=== PATIENT | female | born 1960 | race Caucasian/White ===

== ENCOUNTER 2017-01-07 16:56 | Emergency (ER) | payer OTHER ==
[2017-01-07] MEDS ORDERED: Acetaminophen/HYDROcodone 325-10 MG Tab PO ONE (17:11)
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
[2017-01-07] MEDS ORDERED: Take Home: Cyclobenzaprine 10 MG Tab, 4 Tab Pack PO ONE (18:48)
[2017-01-07] MEDS ORDERED: Take Home: Acetaminophen/HYDROcodone 325-10 MG, 5 Tab Pack PO ONE (18:48)
[2017-01-07 20:49] VITALS: BP 168/95
== END 2017-01-07 19:03 | disposition home or self-care (01) ==
LOC: VM.ED 16:56
DX: S43.402A Unspecified sprain of left shoulder joint, initial encounter (principal); V29.50XA Motorcycle passenger injured in collision with unspecified motor vehicles in traffic accident, initial encounter
CPT/HCPCS: 73030; 73060; 99283; A9270

== ENCOUNTER 2019-06-09 07:59 | Observation (INO) | payer BC, OTHER ==
[2019-06-09] MEDS ORDERED: Aspirin 81 MG Tab.Chew PO ONE (08:33)
[2019-06-09] MEDS ORDERED: Sodium Chloride 0.9% 10 ML Syringe FLUSH PRN (08:34)
[2019-06-09] MEDS: Nitroglycerin 0.4 MG Tab.SL SL PRN ×3 (08:47→13:33)
--- NOTE | 2019-06-09 08:57 | EDM.PDOC ---
ED HPI GENERAL MEDICAL PROBLEM - General Chief Complaint: Cardiovascular Problem Stated Complaint: HEART RACING Time Seen by Provider: 06/09/19 08:40 - History of Present Illness INITIAL COMMENTS - FREE TEXT/NARRATIVE: Pt presents with c/o chest pressure that started yesterday. Pt with hx of htn and arthritis, denies any cardiac issues in the past. No dizziness, did states had some "acid reflux" yesterday. - Related Data Allergies Allergy/AdvReac Type Severity Reaction Status Date / Time No Known Allergies Allergy Verified 06/09/19 08:15 Home Meds: Home Meds Ferrous Sulfate [Iron] 325 mg PO DAILY 01/07/17 [History] Lisinopril 10 mg PO DAILY 06/09/19 [History] Past Medical History Cardiovascular History: Reports: High Cholesterol, Hypertension Other Gastrointestinal History: reflux Musculoskeletal History: Reports: Osteoarthritis Social & Family History - Tobacco Use Smoking Status *Q: Former Smoker Used Tobacco, but Quit: Yes Month/Year Tobacco Last Used: ED ROS GENERAL - Review of Systems Review Of Systems: See Below Constitutional: Reports: No Symptoms HEENT: Reports: No Symptoms Respiratory: Reports: No Symptoms Cardiovascular: Reports: Chest Pain Endocrine: Reports: No Symptoms GI/Abdominal: Reports: No Symptoms : Reports: No Symptoms Musculoskeletal: Reports: No Symptoms Skin: Reports: No Symptoms Neurological: Reports: No Symptoms Psychiatric: Reports: No Symptoms Hematologic/Lymphatic: Reports: No Symptoms Immunologic: Reports: No Symptoms ED EXAM, GENERAL - Physical Exam Exam: See Below Free Text/Narrative:: Ekg noted pvc every 3-4 beats, on monitor noted some pac not noted on ekg seen on monitor pt with chest pressure was relieved by 1 sl ntg. low wbc at 3.2 noted opacity projects over the retrocardia clear space per x ray ct noted small hiatus hernia no suspicious parenchymal nodularity noted. Will place in obs, repeat trop and ekg at 1345. Exam Limited By: No Limitations General Appearance: Alert, WD/WN, No Apparent Distress Eye Exam: Bilateral Eye: PERRL Ears: Normal External Exam Nose: Normal Inspection, Normal Mucosa, No Blood Throat/Mouth: Normal Inspection, Normal Lips Head: Atraumatic, Normocephalic Neck: Normal Inspection, Supple, Non-Tender Respiratory/Chest: No Respiratory Distress, Lungs Clear, Normal Breath Sounds, No Accessory Muscle Use, Chest Non-Tender Cardiovascular: Normal Peripheral Pulses, Regular Rate, Rhythm, No Edema, No Gallop, No JVD, No Murmur, No Rub GI/Abdominal: Normal Bowel Sounds Back Exam: Normal Inspection, Full Range of Motion Extremities: Normal Inspection, Normal Range of Motion, Non-Tender, No Pedal Edema, Normal Capillary Refill Neurological: Alert, Oriented Psychiatric: Normal Affect, Normal Mood Skin Exam: Warm, Dry, Intact, Normal Color, No Rash Lymphatic: No Adenopathy Course - Vital Signs Last Recorded V/S: Last Vital Signs Temp 37.0 C 06/09/19 08:02 Pulse 66 06/09/19 09:59 Resp 15 06/09/19 09:59 BP 148/85 H 06/09/19 09:59 Pulse Ox 97 06/09/19 09:59 - Orders/Labs/Meds Orders: Active Orders 24 hr Category Date Time Status EKG 12 Lead [EKG Documentation Completion] [] ROUTINE Care 06/09/19 13:45 Ordered EKG 12 Lead [EKG Documentation Completion] [] STAT Care 06/09/19 08:42 Active TROPONIN I [CHEM] Timed Lab 06/09/19 13:45 Ordered Nitroglycerin [Nitrostat] Med 06/09/19 08:47 Active 0.4 mg SL Q5M PRN Sodium Chloride 0.9% [Saline Flush] Med 06/09/19 08:34 Active 10 ml FLUSH ASDIRECTED PRN Saline Lock Insert [OM.PC] Routine Oth 06/09/19 08:34 Ordered Medication Orders Nitroglycerin (Nitrostat) 0.4 mg SL Q5M PRN PRN Reason: Chest Pain Last Admin: 06/09/19 08:47 Dose: 0.4 mg Sodium Chloride (Saline Flush) 10 ml FLUSH ASDIRECTED PRN PRN Reason: Keep Vein Open Labs: Laboratory Tests 06/09/19 06/09/19 06/09/19 Range/Units 08:42 08:42 09:05 WBC 3.2 L (4.0-10.0) x10^3/uL RBC 5.12 (4.00-5.50) x10^6/uL Hgb 11.2 L (12.0-16.0) g/dL Hct 37.0 (33.0-47.0) % MCV 72.3 L (78.0-93.0) fL MCH 21.9 L (26.0-32.0) pg MCHC 30.3 L (32.0-36.0) g/dL RDW Coeff of Xiomara 15.4 H (10.0-15.0) % Plt Count 275 (130-400) x10^3/uL Neut % (Auto) 62.3 (50.0-80.0) % Lymph % (Auto) 24.4 L (25.0-50.0) % Saline % (Auto) 9.9 (2.0-11.0) % Eos % (Auto) 1.9 (0.0-4.0) % Baso % (Auto) 1.5 H (0.2-1.2) % Sodium 144 (136-145) mmol/L Potassium 4.1 (3.5-5.1) mmol/L Chloride 107 (98-107) mmol/L Carbon Dioxide 27 (21-32) mmol/L Anion Gap 14.1 (10-20) mmol/L BUN 11 (7-18) mg/dL Creatinine 0.7 (0.55-1.02) mg/dL Est Cr Clr Drug Dosing TNP Estimated GFR (MDRD) > 60 Glucose 96 (74-106) mg/dL Calcium 8.8 (8.5-10.1) mg/dL Corrected Calcium 9.28 (8.5-10.1) mg/dL Total Bilirubin 0.3 (0.2-1.0) mg/dL AST 18 (15-37) U/L ALT 25 (14-59) U/L Alkaline Phosphatase 90 (46-116) U/L Troponin I < 0.017 (<=0.056) ng/mL Total Protein 7.2 (6.4-8.2) g/dL Albumin 3.4 (3.4-5.0) g/dL Globulin 3.8 Albumin/Globulin Ratio 0.89 Urine Color Yellow (YELLOW) Urine Appearance Clear (CLEAR) Urine pH 7.0 (5.0-8.0) Ur Specific [place] 1.010 Urine Protein Negative (NEGATIVE) mg/dL Urine Glucose (UA) Negative (NEGATIVE) mg/dL Urine Ketones Negative (NEGATIVE) mg/dL Urine Occult Blood Negative (NEGATIVE) Urine Nitrite Negative (NEGATIVE) Urine Bilirubin Negative (NEGATIVE) Urine Urobilinogen 0.2 (0.2) EU/dL Ur Leukocyte Esterase Negative (NEGATIVE) Meds: Medications Generic Name Dose Route Start Last Admin Trade Name Frearthur PRN Reason Stop Dose Admin Nitroglycerin 0.4 mg 06/09/19 08:47 06/09/19 08:47 Nitrostat SL 0.4 mg Q5M PRN Administration Chest Pain Sodium Chloride 10 ml 06/09/19 08:34 Saline Flush FLUSH ASDIRECTED PRN Keep Vein Open Discontinued Medications Generic Name Dose Route Start Last Admin Trade Name Frearthur PRN Reason Stop Dose Admin Aspirin 324 mg 06/09/19 08:33 06/09/19 08:10 Aspirin PO 06/09/19 08:34 324 mg ONETIME ONE Administration Iopamidol 100 ml 06/09/19 09:30 06/09/19 09:56 Isovue-300 (61%) IVPUSH 06/09/19 09:31 100 ml ONETIME ONE Administration Departure - Departure Time of Disposition: 10:46 Disposition: Refer to Observation Condition: Good Clinical Impression: Chest pressure Referrals: Elisabet Mcfarland PA-C [Primary Care Provider] - Forms: ED Department Discharge - My Orders Last 24 Hours: My Active Orders 06/09/19 08:34 Sodium Chloride 0.9% [Saline Flush] 10 ml FLUSH ASDIRECTED PRN Saline Lock Insert [OM.PC] Routine 06/09/19 08:42 EKG 12 Lead [EKG Documentation Completion] [RC] STAT 06/09/19 08:47 Nitroglycerin [Nitrostat] 0.4 mg SL Q5M PRN 06/09/19 13:45 EKG 12 Lead [EKG Documentation Completion] [RC] ROUTINE TROPONIN I [CHEM] Timed - Assessment/Plan Admission H&P: Please use this note as an admission H&P Last 24 Hours: My Active Orders 06/09/19 08:34 Sodium Chloride 0.9% [Saline Flush] 10 ml FLUSH ASDIRECTED PRN Saline Lock Insert [OM.PC] Routine 06/09/19 08:42 EKG 12 Lead [EKG Documentation Completion] [RC] STAT 06/09/19 08:47 Nitroglycerin [Nitrostat] 0.4 mg SL Q5M PRN 06/09/19 13:45 EKG 12 Lead [EKG Documentation Completion] [RC] ROUTINE TROPONIN I [CHEM] Timed
[2019-06-09 09:14] LABS: CHLORIDE,CL 107 mmol/L (98-107); SODIUM,NA 144 mmol/L (136-145)
[2019-06-09 09:16] LABS: ANION GAP 14.1 mmol/L (10-20)
--- NOTE | 2019-06-09 09:16 | CR ---
[id number] RAD/RAD Chest PA And Lateral EXAM: RAD Chest PA And Lateral INDICATION: CHEST PAIN. COMPARISON: None. DISCUSSION: Cardiomediastinal silhouette is normal in size and contour. COPD. No infiltrate, effusion, pneumothorax, or edema. Subtle rounded opacity projects over the retrocardiac clear space on lateral view. Finding is nonspecific. Contrast-enhanced chest CT examination is recommended for further evaluation. IMPRESSION: As above. Eder Benavidez MD 06/09/19 0914 Thank you for allowing us to participate in the care of your patient.
[2019-06-09] MEDS ORDERED: Iopamidol 612 MG/ML 100 ML Bottle IVPUSH ONE (09:30)
--- NOTE | 2019-06-09 10:38 | CT ---
[id number] CT/CT Chest W IV EXAM: CT Chest W IV CLINICAL DATA: OPACITY PROJECTS OVER RETROCARDIAC SPACE SEEN COMPARISON: Radiograph from today. FINDINGS: LUNGS: Mild amount of scarring in the lung bases. No pneumonia, effusion, edema, or pneumothorax. No suspicious parenchymal nodularity. HEART AND GREAT VESSELS: Small amount of pericardial fluid within numerous recesses of the pericardial space. Heart is normal in size. Thoracic aorta is normal in caliber. No dissection. MEDIASTINUM AND LYMPHATICS: No mediastinal or hilar lymphadenopathy. UPPER ABDOMINAL ORGANS: Moderate-sized sliding-type hiatus hernia projects over the posterior mediastinum. This correlates with opacity seen on radiograph. Otherwise unremarkable. BONES: Scattered changes of spondylosis in the spine. No fracture or osseous lesion. IMPRESSION: Moderate-sized sliding-type hiatus hernia projects over the posterior mediastinum accounting for appearance on chest radiograph. No significant cardiopulmonary abnormality. Eder Benavidez MD 06/09/19 1037 Thank you for allowing us to participate in the care of your patient.
[2019-06-09 11:30] VITALS: PULSE 71
[2019-06-09 13:33] VITALS: BP 146/86
[2019-06-09] MEDS ORDERED: Nitroglycerin/D5W 25 MG/250 ML BOTTLE IV SCH (14:15)
--- NOTE | 2019-06-09 14:22 | PCM.DCSUM1 ---
Discharge Summary - Hospital Course Free Text/Narrative:: Pt presented this am c/o chest pressure started yesterday and has been on and off. PT with hx ot htn is currently on lisinopril no other medical hx. In er trop negative. wbc at 3.2 ekg sr with pvc every 3-4th beat, 1 sl ntg given pressure relieved pvc infrequent, on the floor pressure returned with more frequent pvc, pt given 2 sl ntg with relief, will start ntg drip 5mcg/ minute tirtate to effect. Discussed with Dr. [facility] who accepted transfer for further evaluation and treatment as needed. HPI Initial Comments: cp started yesterday and has not improved. Diagnosis: Stroke: No - Discharge Data Discharge Date: 06/09/19 Discharge Disposition: DC/Tfer to Acute Hospital 02 Condition: Fair - Referral to Home Health Primary Care Physician: Elisabet Mcfarland PA-C - Discharge Plan *PRESCRIPTION DRUG MONITORING PROGRAM REVIEWED*: Not Applicable *COPY OF PRESCRIPTION DRUG MONITORING REPORT IN PATIENT [place]: Not Applicable Home Medications: Home Meds Ferrous Sulfate [Iron] 325 mg PO DAILY 01/07/17 [History] Lisinopril 10 mg PO DAILY 06/09/19 [History] Forms: ED Department Discharge, Interfacility Transfer EMTALA Referrals: Elisabet Mcfarland PA-C [Primary Care Provider] - - Discharge Summary/Plan Comment DC Time >30 min.: Yes - Patient Data Vitals - Most Recent: Last Vital Signs Temp 36.8 C 06/09/19 11:10 Pulse 71 06/09/19 11:10 Resp 15 06/09/19 09:59 BP 146/86 H 06/09/19 13:33 Pulse Ox 100 06/09/19 11:10 Weight - Most Recent: 84.822 kg Lab Results - Last 24 hrs: Laboratory Results - last 24 hr 06/09/19 06/09/19 06/09/19 Range/Units 08:42 08:42 09:05 WBC 3.2 L (4.0-10.0) x10^3/uL RBC 5.12 (4.00-5.50) x10^6/uL Hgb 11.2 L (12.0-16.0) g/dL Hct 37.0 (33.0-47.0) % MCV 72.3 L (78.0-93.0) fL MCH 21.9 L (26.0-32.0) pg MCHC 30.3 L (32.0-36.0) g/dL RDW Coeff of Xiomara 15.4 H (10.0-15.0) % Plt Count 275 (130-400) x10^3/uL Neut % (Auto) 62.3 (50.0-80.0) % Lymph % (Auto) 24.4 L (25.0-50.0) % [place] % (Auto) 9.9 (2.0-11.0) % Eos % (Auto) 1.9 (0.0-4.0) % Baso % (Auto) 1.5 H (0.2-1.2) % Sodium 144 (136-145) mmol/L Potassium 4.1 (3.5-5.1) mmol/L Chloride 107 (98-107) mmol/L Carbon Dioxide 27 (21-32) mmol/L Anion Gap 14.1 (10-20) mmol/L BUN 11 (7-18) mg/dL Creatinine 0.7 (0.55-1.02) mg/dL Est Cr Clr Drug Dosing TNP Estimated GFR (MDRD) > 60 Glucose 96 (74-106) mg/dL Calcium 8.8 (8.5-10.1) mg/dL Corrected Calcium 9.28 (8.5-10.1) mg/dL Total Bilirubin 0.3 (0.2-1.0) mg/dL AST 18 (15-37) U/L ALT 25 (14-59) U/L Alkaline Phosphatase 90 (46-116) U/L Troponin I < 0.017 (<=0.056) ng/mL Total Protein 7.2 (6.4-8.2) g/dL Albumin 3.4 (3.4-5.0) g/dL Globulin 3.8 Albumin/Globulin Ratio 0.89 Urine Color Yellow (YELLOW) Urine Appearance Clear (CLEAR) Urine pH 7.0 (5.0-8.0) Ur Specific [place] 1.010 Urine Protein Negative (NEGATIVE) mg/dL Urine Glucose (UA) Negative (NEGATIVE) mg/dL Urine Ketones Negative (NEGATIVE) mg/dL Urine Occult Blood Negative (NEGATIVE) Urine Nitrite Negative (NEGATIVE) Urine Bilirubin Negative (NEGATIVE) Urine Urobilinogen 0.2 (0.2) EU/dL Ur Leukocyte Esterase Negative (NEGATIVE) Med Orders - Current: Current Medications Nitroglycerin/Dextrose (Nitroglycerin 25 Mg/D5w 250 Ml) 25 mg in 250 mls @ 3 mls/hr IV TITRATE MIRANDA; Protocol Sodium Chloride (Saline Flush) 10 ml FLUSH ASDIRECTED PRN PRN Reason: Keep Vein Open Discontinued Medications Aspirin (Aspirin) 324 mg PO ONETIME ONE Stop: 06/09/19 08:34 Last Admin: 06/09/19 08:10 Dose: 324 mg Iopamidol (Isovue-300 (61%)) 100 ml IVPUSH ONETIME ONE Stop: 06/09/19 09:31 Last Admin: 06/09/19 09:56 Dose: 100 ml Nitroglycerin (Nitrostat) 0.4 mg SL Q5M PRN PRN Reason: Chest Pain Last Admin: 06/09/19 13:33 Dose: 0.4 mg
== END 2019-06-09 15:10 | disposition short-term general hospital (02) ==
LOC: VM.ED 07:59 → VM.MS 11:00
PROVIDERS: ADMIT Nurse Practitioner; ATTEND Nurse Practitioner
DX: R07.89 Other chest pain (principal); I10 Essential (primary) hypertension; K21.9 Gastro-esophageal reflux disease without esophagitis; E78.00 Pure hypercholesterolemia, unspecified; M19.90 Unspecified osteoarthritis, unspecified site; Z87.891 Personal history of nicotine dependence
CPT/HCPCS: 36415; 71046; 71260; 80053; 81003; 82962; 84484; 85025; 93005; 96365; 99285-25; A9270-GY; G0378; J3490; Q9967

== ENCOUNTER 2019-07-03 08:17 | Day surgery (SDC) | payer BC ==
[~2019-07-03 08:17] MED LIST: Lactated Ringers 1,000 ML IV SCH
[2019-07-03] MEDS ORDERED: Propofol 200 MG/20 ML SDV ONE ×2 (08:49→11:11)
[2019-07-03] MEDS ORDERED: fentaNYL 100 MCG/2 ML SDV ONE (08:49)
[2019-07-03] MEDS ORDERED: Sodium Chloride 0.9% 10 ML Syringe FLUSH PRN (09:01)
[2019-07-03 12:26] VITALS: BP 150/81; PULSE 69
--- NOTE | 2019-07-03 16:17 | OR ---
PRE-OPERATIVE DIAGNOSES: 1. Iron deficiency anemia. 2. Large hiatal hernia seen on recent CT scan. POST-OPERATIVE DIAGNOSES: 1. Minimal antritis. Cold biopsy x2 bites taken. 2. Large sliding-type hiatal hernia without any evidence of inflammation. No strictures or rings noted. PROCEDURE: Esophagogastroduodenoscopy with cold biopsy x1 site (antrum). ANESTHESIA: Monitored anesthesia care. DESCRIPTION OF PROCEDURE: Luisa is a 59-year-old female who was brought to the endoscope suite after discussion of risks and benefits (including but not limited to reaction to medication, bleeding, infection, aspiration, perforation). Informed consent was obtained for monitored anesthesia care and esophagogastroduodenoscopy along with possible biopsy and/or dilatation. Pre-procedure exam including oral cavity was unremarkable. IV, oxygen, and monitors were placed. Patient was placed in the left lateral position and sedation was administered. A bite block was placed gently and scope lightly lubricated and passed through the bite block and over the tongue. Hypopharynx and vocal cords were visualized and unremarkable. Scope was passed through the cricopharynx and into the esophagus. The scope was then passed through the distal esophagus and the GE junction was visualized and photographed. The GE junction was remarkable for large sliding-type hiatal hernia, which is probably 5 to 8 cm in length. There were no significant inflammation, strictures, or rings noted. Vocal cords were visualized and unremarkable. The scope was advanced into the stomach and gastric castro was suctioned. Pylorus was identified and intubated and then the scope was advanced to the third portion of the duodenum. The second and third portions of the duodenum were unremarkable. The duodenal bulb was visualized and unremarkable. The scope was brought back into the stomach. The pylorus and the antrum were remarkable for some minimal antritis. Cold biopsy x2 bites taken for path and H. pylori. Scope was then retroflexed to visualize the angularis, fundus, body, and cardia. These were unremarkable, but did show a good view of the larger hiatal hernia. The stomach was desufflated of air and then the scope was slowly withdrawn, and the esophagus was closely visualized during withdrawal all the way into the posterior pharynx and was normal. The patient tolerated the procedure well and went to recovery in stable condition. The patient was monitored until at baseline status. Findings and discharge instructions were reviewed and the patient was discharged in good condition. COMPLICATIONS: None. TOTAL TIME: 5 minutes. ESTIMATED BLOOD LOSS: Less than 1 mL. RECOMMENDATIONS/FOLLOW-UP: We will await results of the path report and send letter with results. She can continue on her omeprazole, aspirin, iron, and Toprol, which were all recently started. I would like to kindly thank Elisabet Mcfarland for this referral. DMB: 07/03/2019 12:00:04 MODL: 07/03/2019 16:06:59 /[id number]
--- NOTE | 2019-07-03 16:33 | OR ---
PRE-OPERATIVE DIAGNOSES: 1. Iron-deficiency anemia. 2. Positive family history of colon polyps. The patient's last colonoscopy was in 2009. POST-OPERATIVE DIAGNOSES: 1. Three tiny polyps removed using cold forceps. a. 2 mm x2 at 70 cm (near cecum). b. 2 mm at 20 cm. 2. Normal distal ileum. 3. Mild sigmoid diverticulosis. 4. Mild hemorrhoids, not acutely inflamed. PROCEDURE: Colonoscopy with polypectomy x3 using cold forceps. ANESTHESIA: Monitored anesthesia care. BOWEL PREP: Good. DESCRIPTION OF PROCEDURE: Luisa is a 59-year-old female who was brought to the endoscopy suite after discussing risks and benefits of the procedure. Informed consent was obtained for conscious sedation and colonoscopy with or without biopsy and/or polypectomy. We also discussed possibility of missed lesions. Pre-procedure exam was unremarkable. IV, oxygen, and monitors were placed. The patient was placed in the left lateral decubitus position. Sedation was administered and a digital rectal exam was performed and unremarkable. Colonoscope was passed into the rectum and slowly advanced all the way to the cecum. Cecum was viewed and photographed. Ileocecal valve was intubated and distal ileum was normal in appearance. The colonoscope was slowly withdrawn and the mucosa was closed observed in a direct circumferential manner. The ascending colon was remarkable for 2 polyps near the cecum, both measuring about 2 mm in size. These were removed using cold forceps. Transverse colon unremarkable. Descending colon unremarkable. Sigmoid colon revealed some mild diverticulosis as well as a 2 mm polyp at 20 cm, removed using cold forceps. Retroflexion was performed. Rectal mucosa was remarkable for some mild internal hemorrhoids, not acutely inflamed. Scope was removed. The patient tolerated the procedure well. The patient was monitored until that baseline status. Discharge instructions were reviewed and the patient was discharged in good condition. COMPLICATIONS: None. TOTAL TIME: 24 minutes. ESTIMATED BLOOD LOSS: About 1 mL. RECOMMENDATIONS/FOLLOW-UP: We will await results of path report to determine ideal followup interval. Would have the patient hold her aspirin for 3 days to limit any chance of bleeding from the polypectomy sites. I would like to kindly thank Elisabet Mcfarland for this referral. DMB: 07/03/2019 12:03:34 MODL: 07/03/2019 16:24:08 /[id number]
== END 2019-07-03 13:15 | disposition home or self-care (01) ==
LOC: VM.SDS 08:17
PROVIDERS: ATTEND Family Medicine
DX: D50.9 Iron deficiency anemia, unspecified (principal); D12.2 Benign neoplasm of ascending colon; K63.5 Polyp of colon; K57.30 Diverticulosis of large intestine without perforation or abscess without bleeding; K44.9 Diaphragmatic hernia without obstruction or gangrene; K29.50 Unspecified chronic gastritis without bleeding; K31.89 Other diseases of stomach and duodenum; K21.9 Gastro-esophageal reflux disease without esophagitis; I78.1 Nevus, non-neoplastic; I10 Essential (primary) hypertension; E78.00 Pure hypercholesterolemia, unspecified; F43.22 Adjustment disorder with anxiety; F32.9 Major depressive disorder, single episode, unspecified; M15.9 Polyosteoarthritis, unspecified; E66.9 Obesity, unspecified; Z68.32 Body mass index [BMI] 32.0-32.9, adult; Z87.891 Personal history of nicotine dependence; Z79.82 Long term (current) use of aspirin; Z79.899 Other long term (current) drug therapy; Z80.0 Family history of malignant neoplasm of digestive organs; Z83.71 Family history of colonic polyps
CPT/HCPCS: 43239; J2704; J3010; J7120

== ENCOUNTER 2024-09-25 08:30 | Day surgery (SDC) | payer MEDICARE, OTHER ==
[2024-09-25] MEDS: Lactated Ringers 1,000 ML IV SCH (08:47)
[2024-09-25] MEDS ORDERED: fentaNYL 100 MCG/2 ML SDV ONE ×2 (09:17→10:21)
[2024-09-25] MEDS ORDERED: Propofol 200 MG/20 ML SDV ONE ×2 (09:34→10:20)
[2024-09-25 11:53] VITALS: BP 156/89; PULSE 72
== END 2024-09-25 12:50 | disposition home or self-care (01) ==
LOC: VM.SDS 08:30
PROVIDERS: ATTEND Family Medicine
DX: Z12.11 Encounter for screening for malignant neoplasm of colon (principal); D12.0 Benign neoplasm of cecum; D12.6 Benign neoplasm of colon, unspecified; K63.5 Polyp of colon; K62.1 Rectal polyp; K57.30 Diverticulosis of large intestine without perforation or abscess without bleeding; K64.9 Unspecified hemorrhoids; Z86.0100 Personal history of colon polyps, unspecified; Z80.0 Family history of malignant neoplasm of digestive organs; I10 Essential (primary) hypertension; E78.00 Pure hypercholesterolemia, unspecified; K21.9 Gastro-esophageal reflux disease without esophagitis; E66.811 Obesity, class 1; Z68.36 Body mass index [BMI] 36.0-36.9, adult; Z79.82 Long term (current) use of aspirin; Z79.899 Other long term (current) drug therapy; Z88.8 Allergy status to other drugs, medicaments and biological substances
CPT/HCPCS: 00811; J2704; J3010; J7120